=== PATIENT | female | born 1980 | race American Indian/Alaskan Native ===

== ENCOUNTER 2016-08-18 22:42 | Emergency (ER) | payer MEDICAID ==
[2016-08-18 22:56] VITALS: O2SAT 100
[2016-08-18] MEDS ORDERED: Sodium Chloride 0.9% 1,000 ML IV ONE (23:23)
[2016-08-18] MEDS ORDERED: DiphenhydrAMINE 50 mg/ml Inj IVP STA (23:23)
[2016-08-18] MEDS ORDERED: Sodium Chloride 0.9% 1,000 ML ONE (23:43)
[2016-08-18] MEDS ORDERED: DiphenhydrAMINE 50 mg/ml Inj ONE (23:43)
--- NOTE | 2016-08-19 00:02 | CT ---
EXAM: CT Head Without Intravenous Contrast CLINICAL HISTORY: 35 years old, female; Pain; Headache; Additional info: Head injury, headache TECHNIQUE: Axial computed tomography images of the head/brain without intravenous contrast. This CT exam was performed using one or more of the following dose reduction techniques: automated exposure control, adjustment of the mA and/or kV according to patient size, and/or use of iterative reconstruction technique. COMPARISON: No relevant prior studies available. FINDINGS: Brain: Unremarkable. No hemorrhage. No significant white matter disease. No edema. Ventricles: Unremarkable. No ventriculomegaly. Bones/joints: Unremarkable. No acute fracture. Soft tissues: Unremarkable. Sinuses: Unremarkable as visualized. No acute sinusitis. Mastoid air cells: Unremarkable as visualized. No mastoid effusion. IMPRESSION: Normal head/brain CT.
--- NOTE | 2016-08-19 00:34 | C.PDOC ---
History Of Present Illness 35 year old female who presents to the ER with a complaint of a right sided headache, nausea, and photophobia that began today. Patient has a history of migraines after a head injury in 1991, has not had one since the late . Patient also states she hit the left side of her face on a door 5 days ago. Patient denies LOC, dizziness, or headache at the time. She also denies fever, facial droop, slurred speech, extremity weakness, sensory changes, neck pain. Time Seen by Provider: 08/18/16 23:07 Chief Complaint (Nursing): Headache History Per: Patient History/Exam Limitations: no limitations Onset/Duration Of Symptoms: Hrs Current Symptoms Are (Timing): Still Present Preceeding Symptoms: Known Migraine Symptoms (last episode last 90s) Associated Symptoms: Photophobia, Nausea. denies: Blurred Vision, Vomiting, Extremity Weakness Past Medical History Reviewed: Historical Data, Nursing Documentation, Vital Signs Vital Signs: Last Vital Signs Temp 97.9 F 08/19/16 01:10 Pulse 80 08/19/16 01:10 Resp 18 08/19/16 01:10 BP 103/68 08/19/16 01:10 Pulse Ox 100 08/19/16 01:10 - Medical History PMH: Migraine - [facility] Procedures TETANUS TOXOID ADMINIST (12/06/13) Family History: States: No Known Family Hx - Social History Hx Tobacco Use: No Hx Alcohol Use: Yes Hx Substance Use: No - Immunization History Hx Tetanus Toxoid Vaccination: No Hx Influenza Vaccination: No Hx Pneumococcal Vaccination: No Review Of Systems Except As Marked, All Systems Reviewed And Found Negative. Constitutional: Negative for: Fever, Chills Cardiovascular: Negative for: Chest Pain Respiratory: Negative for: Cough, Shortness of Breath Gastrointestinal: Positive for: Nausea. Negative for: Vomiting, Abdominal Pain , Diarrhea Neurological: Positive for: Headache, Other (Photophobia). Negative for: Weakness, Numbness, Altered Mental Status Physical Exam - Physical Exam Appears: Well, Non-toxic, Other (in mild pain) Skin: Normal Color, Warm, Dry Head: Atraumatic, Normacephalic Eye(s): bilateral: Normal Inspection, PERRL, EOMI, Other (no nystagmus) Oral Mucosa: Moist Neck: Normal, Normal ROM, No Midline Cervical Tenderness, No Paracervical Tenderness, No Step Off Deformity, Supple Cardiovascular: Rhythm Regular Respiratory: Normal Breath Sounds, No Rales, No Rhonchi, No Wheezing Gastrointestinal/Abdominal: Normal Exam, Bowel Sounds, Soft, No Tenderness Neurological/Psych: Oriented x3, Normal Speech, Normal Cognition, Normal Cranial Nerves, No Cerebellar Signs, Normal Motor, Normal Sensation, No Dysarthria, No Romberg Gait: Steady ED Course And Treatment O2 Sat by Pulse Oximetry: 100 (Room air) Pulse Ox Interpretation: Normal - CT Scan/US ct head Other Rad Studies (CT/US): Read By Radiologist, Radiology Report Reviewed CT/US Interpretation: Accession No. : [id number]. Patient Name / ID : KATHY Rubio / [id number]. Exam Date : 08/18/2016 23:54:56 ( Approved ). Study Comment : Sex / Age : F / 35Y. Creator : MAURISIO LR. Dictator : Set Up And Charger : Call Center Representative : MAURISIO LR. Approver2 : Report Date : 08/19 00:02:00. My Comment : . [facility] Division of Radiology. [address] [place] [address]. Tel. no. . . . Patient Name: BRIELLE CHAVEZ . Pt. Address: [address] [place] [address] Rec #: [id number][place] [address]: Coby Guzman DO Pt Order Location: [facility] : 1980 Female Age: 35 Order #: [id number]. Reason for exam: head injury, headache. . . . . . CT Scan. . . HEAD W/ O CONTRAST Exam Date: 08/18/16. . This imaging exam was performed at [facility]. . . EXAM: CT Head Without Intravenous Contrast. . CLINICAL HISTORY: 35 years old, female; Pain; Headache; Additional info: Head injury, headache. . TECHNIQUE: Axial computed tomography images of the head/brain without intravenous. contrast. This CT exam was performed using one or more of the following dose. reduction techniques: automated exposure control, adjustment of the mA and/or. kV according to patient size, and/or use of iterative reconstruction technique. . COMPARISON: No relevant prior studies available. . FINDINGS: Brain: Unremarkable. No hemorrhage. No significant white matter disease. No edema. Ventricles: Unremarkable. No ventriculomegaly. Bones/joints: Unremarkable. No acute fracture. Soft tissues: Unremarkable. Sinuses: Unremarkable as visualized. No acute sinusitis. Mastoid air cells: Unremarkable as visualized. No mastoid effusion. . IMPRESSION: Normal head/brain CT. . Dictated By: Maurisio Lr MD, MD. Dictated Date/Time: 08/19/161. Signed By: Maurisio Lr MD. Date Signed: 08/19/161. Transcribed By: [employer]. Transcribe Date/Time: 08/19/161. ISABELLA/OTILIA Progress Note: UPreg POC & CT head ordered and reviewed. Patient given IV Reglan, IV benadryl and IV NS bolus. Reevaluation Time: 01:00 Reassessment Condition: Improved (Patient reassessed, is currently resting comfortably, has no current pain. Ct head (-) for acute findings. Patient is well appearing, and would like to be discharged home. She was given Rx for Fiorecet, and was instructed to follow up with neurology within 1 week. She understands she return to ED if symptoms worsen.) Disposition Counseled Patient/Family Regarding: Studies Performed, Diagnosis, Need For Followup, Rx Given - Disposition Referrals: Leonel Yin MD [Staff Provider] - Uche Wright MD [Staff Provider] - Disposition: HOME/ ROUTINE Disposition Time: 01:00 Condition: STABLE Additional Instructions: FOLLOW UP WITH YOUR DOCTOR IN 1-2 DAYS IF SYMPTOMS PERSIST, FOLLOW UP WITH NEUROLOGY IN 1 WEEK USE MEDICATION NEEDED RETURN TO ER IF SYMPTOMS WORSEN Prescriptions: Acetaminophen/Butalbital/Caf [Fioricet] 1 tab PO TID PRN #20 tab PRN Reason: Headache Instructions: Migraine Headache (ED) Print Language: SETSWANA - POA Present On Arrival: None - Clinical Impression Clinical Impression: Headache, Migraine, Head injury - Scribe Statement The provider has reviewed the documentation as recorded by the Scribmiguel Campa All medical record entries made by the Scribe were at my direction and personally dictated by me. I have reviewed the chart and agree that the record accurately reflects my personal performance of the history, physical exam, medical decision making, and the department course for this patient. I have also personally directed, reviewed, and agree with the discharge instructions and disposition.
[2016-08-19 01:18] VITALS: BP 103/68; PULSE 80; RESP 18; TEMP 97.9
== END 2016-08-19 01:15 | disposition home or self-care (01) ==
LOC: MERGE 22:42 → C.ER 22:42
DX: G43.909 Migraine, unspecified, not intractable, without status migrainosus (principal); Z87.828 Personal history of other (healed) physical injury and trauma
CPT/HCPCS: 70450; 96361; 96374; 96375; 99285; J1200; J2765; J7040

== ENCOUNTER 2017-09-20 13:06 | Emergency (ER) | payer MEDICAID ==
[2017-09-20 13:34] VITALS: BMI 18.3
[2017-09-20 13:37] VITALS: BP 120/75; PULSE 70; RESP 16; TEMP 97.8; O2SAT 100
--- NOTE | 2017-09-20 14:35 | C.PDOC ---
History Of Present Illness 36-year-old female, presents to the emergency department with complaints of headache since 10:00 this morning. Patient has a Hx of seasonal allergies and nasal congestion. Patient took dose of Motrin 800mg with no significant improvement, prompting visit. Denies fever. Time Seen by Provider: 09/20/17 14:18 Chief Complaint (Nursing): Headache History Per: Patient History/Exam Limitations: None Current Symptoms Are (Timing): Still Present Past Medical History Reviewed: Historical Data, Nursing Documentation, Vital Signs Vital Signs: Last Vital Signs Temp 97.8 F 09/20/17 13:35 Pulse 70 09/20/17 13:35 Resp 16 09/20/17 13:35 BP 120/75 09/20/17 13:35 Pulse Ox 100 09/20/17 14:35 - Medical History PMH: Migraine Denies: TIA - [facility] Procedures EPISIOTOMY (11/22/97) MONITORING NOS (11/22/97) INJECT/INFUSE NEC (08/23/05) TETANUS TOXOID ADMINIST (12/06/13) Family History: States: No Known Family Hx - Social History Hx Tobacco Use: No Hx Alcohol Use: No Hx Substance Use: No - Immunization History Hx Tetanus Toxoid Vaccination: No Hx Influenza Vaccination: No Hx Pneumococcal Vaccination: No Review Of Systems Constitutional: Negative for: Fever ENT: Positive for: Nose Congestion Respiratory: Negative for: Cough Neurological: Positive for: Headache Physical Exam - Physical Exam Appears: Non-toxic, No Acute Distress Skin: Normal Color, Warm, Dry, No Rash Head: Normacephalic Eye(s): bilateral: PERRL Nose: Other (B/L nasal erythema and kissing turbinates) Oral Mucosa: Moist Lips: Normal Appearing Neck: Normal ROM Cardiovascular: Rhythm Regular, No Murmur Respiratory: Normal Breath Sounds, No Accessory Muscle Use Extremity: Normal ROM, No Deformity, No Swelling Neurological/Psych: Oriented x3, Normal Speech ED Course And Treatment O2 Sat by Pulse Oximetry: 100 (RA) Pulse Ox Interpretation: Normal Medical Decision Making Medical Decision Making: seasonal allergies, sinus headache, nasal congestion Disposition Doctor Will See Patient In The: Office Counseled Patient/Family Regarding: Studies Performed, Diagnosis - Disposition Referrals: Uceh Wright MD [Staff Provider] - Disposition: HOME/ ROUTINE Disposition Time: 14:34 Condition: GOOD Additional Instructions: tylenol or Motrin for headache pain Psdudafed 30 mg every 6 hours as needed for sinus congestion cold/allergy meds which say, "Sinus" will have a nasal decongestant ingredient Daily Flonase 1 spray each side as needed. Gay/Claritin as needed- as directed, for season allergies. Follow-up with your PMD as needed. Instructions: Sinus Headache (DC) Forms: [employer] (Swedish) - Clinical Impression Clinical Impression: Headache - Scribe Statement The provider has reviewed the documentation as recorded by the Scribe (Faith Terrell) Provider Attestation: All medical record entries made by the Scribe were at my direction and personally dictated by me. I have reviewed the chart and agree that the record accurately reflects my personal performance of the history, physical exam, medical decision making, and the department course for this patient. I have also personally directed, reviewed, and agree with the discharge instructions and disposition.
== END 2017-09-20 14:43 | disposition home or self-care (01) ==
LOC: C.ER 13:06
DX: R51 Headache (principal)